=== PATIENT | male | born 1985 | race African-American/Black ===

== ENCOUNTER 2020-01-20 21:20 | Emergency (ER) | payer MEDICAID ==
[~2020-01-20] VITALS: Ht 190.5 cm; Wt 104.3 kg
[2020-01-20 22:24] LABS: BASOPHILS % (AUTO) 0.9 % (0.0-2.0); EOSINOPHILS % (AUTO) 1.1 % (0.0-7.0); LYMPHOCYTES % (AUTO) 25.7 % (20.5-51.5); MEAN CORPUSCULAR HEMOGLOBIN 29.9 uug (23.8-33.4); MEAN CORPUSCULAR HGB CONC 33 g/dL (32.5-36.3); MONOCYTES # (AUTO) 0.6 K/uL (2.0-10.0); MONOCYTES % (AUTO) 17.1 % (0.0-11.0); NEUTROPHILS # (AUTO) 2.1 K/uL (1.8-8.9); NEUTROPHILS % (AUTO) 55.2 % (38.5-71.5); PLATELET COUNT (AUTO) 273 K/uL (152-348); RED BLOOD CELL COUNT(AUTO) 4.67 MIL/uL (4.06-5.63); WHITE BLOOD COUNT (AUTO) 3.8 K/uL (3.6-10.2)
[2020-01-20 22:29] LABS: CREATININE 1.6 mg/dL (0.6-1.3); POTASSIUM 3.6 mmol/L (3.5-5.1)
[2020-01-20 22:35] LABS: BILIRUBIN,DIRECT 0.1 mg/dL (0.0-0.2); BILIRUBIN,TOTAL 0.3 mg/dL (0.2-1.0); TOTAL PROTEIN, SERUM 6.9 g/dL (6.4-8.2)
--- NOTE | 2020-01-20 22:40 | NUR ---
PT STATED HE COULD NOT PROVIDE URINE AT THIS TIME BECAUSE HE JUST WENT, SO I PROVIDE PT WITH 1 LITER OF WATER TO DRINK.
[2020-01-20 23:23] LABS: *BILIRUBIN,URIN NEGATIVE (NEGATIVE); *BLOOD, URINE NEGATIVE (NEGATIVE); *CLARITY,URINE CLEAR (CLEAR); *COLOR,URINE YELLOW (YELLOW); *KETONES,URINE NEGATIVE (NEGATIVE); *UROBILINOGEN,URINE 0.2 E.U./dl (NORMAL); LEUKOCYTE ESTERASE ,URINE NEGATIVE (NEGATIVE); NITRITE, URINE NEGATIVE (NEGATIVE); UGLUCOSE NEGATIVE (NEGATIVE)
--- NOTE | 2020-01-21 00:07 | NUR ---
URINE WAS SENT TO LAB EARLI[facility]. MSE COMPLETED. PT D/C'D HOME, ACI GIVEN. PT AMBULATED W/O DIFF/TOOK ALL BELONGINGS
[2020-01-21 00:08] VITALS: BP 120/89
[2020-01-21 03:50] LABS: BASOPHILS % (MANUAL) 1 % (0-2); EOSINOPHILS % (MANUAL) 3 % (0-8); LYMPHOCYTES % (MANUAL) 27 % (20-40); MONOCYTES % (MANUAL) 10 % (2-10); NEUTROPHILS % (MANUAL) 57 % (42-75)
== END 2020-01-21 00:09 | disposition home or self-care (01) ==
LOC: ER 21:24
DX: R10.9 Unspecified abdominal pain (principal); N28.9 Disorder of kidney and ureter, unspecified
CPT/HCPCS: 36415; 70030-TC; 83690; 85025; A4663

== ENCOUNTER 2020-01-28 22:00 | Emergency (ER) | payer MEDICAID ==
[~2020-01-28] VITALS: Ht 188 cm; Wt 104.3 kg
[2020-01-28] MEDS ORDERED: IV NORMAL SALINE 1000 ML BAG IV ONE (22:15)
--- NOTE | 2020-01-28 22:34 | NUR ---
MD EVALUATED PT, SALINE LOCK PLACED/EKG DONE/LABS DRAWN-SENT. PT STATED HE COULD NOT PROVIDE URINE AT THIS TIME, 1 L WATER GIVEN TO DRINK, URINAL AT THE BEDSIDE.
[2020-01-28 22:54] LABS: BASOPHILS % (AUTO) 0.7 % (0.0-2.0); EOSINOPHILS % (AUTO) 0.2 % (0.0-7.0); HEMOGLOBIN 13.4 g/dL (12.5-16.3); LYMPHOCYTES # (AUTO) 0.8 K/uL (20.0-40.0); LYMPHOCYTES % (AUTO) 15.4 % (20.5-51.5); MEAN CORPUSCULAR HGB CONC 34 g/dL (32.5-36.3); MEAN CORPUSCULAR VOLUME 89.4 fL (73.0-96.2); MONOCYTES # (AUTO) 0.5 K/uL (2.0-10.0); MONOCYTES % (AUTO) 8.5 % (0.0-11.0); NEUTROPHILS # (AUTO) 4.1 K/uL (1.8-8.9); NEUTROPHILS % (AUTO) 75.2 % (38.5-71.5); PLATELET COUNT (AUTO) 201 K/uL (152-348); RED BLOOD CELL COUNT(AUTO) 4.48 MIL/uL (4.06-5.63); WHITE BLOOD COUNT (AUTO) 5.4 K/uL (3.6-10.2)
[2020-01-28 23:01] LABS: BILIRUBIN,DIRECT 0.2 mg/dL (0.0-0.2); BILIRUBIN,TOTAL 0.5 mg/dL (0.2-1.0); CREATININE 1.5 mg/dL (0.6-1.3); POTASSIUM 3.8 mmol/L (3.5-5.1); TOTAL PROTEIN, SERUM 7.7 g/dL (6.4-8.2)
[2020-01-28 23:13] LABS: ETHANOL < 3 MG/DL (0-0)
[2020-01-29 00:11] LABS: *BILIRUBIN,URIN NEGATIVE (NEGATIVE); *BLOOD, URINE NEGATIVE (NEGATIVE); *CLARITY,URINE CLEAR (CLEAR); *KETONES,URINE NEGATIVE (NEGATIVE); *UROBILINOGEN,URINE 0.2 E.U./dl (NORMAL); LEUKOCYTE ESTERASE ,URINE NEGATIVE (NEGATIVE); NITRITE, URINE NEGATIVE (NEGATIVE); UGLUCOSE NEGATIVE (NEGATIVE)
[2020-01-29 00:23] LABS: *AMPHETAMINE, URINE NEGATIVE (NEGATIVE); *CANNABINOID, URINE NEGATIVE (NEGATIVE); *COCCAINE, URINE POSITIVE (NEGATIVE); *OPIATE, URINE NEGATIVE (NEGATIVE); *PHENCYCLIDINE SCREEN,URINE NEGATIVE (NEGATIVE)
[2020-01-29 00:32] LABS: *COLOR,URINE STRAW (YELLOW)
--- NOTE | 2020-01-29 00:50 | NUR ---
1L 0.9NS INFUSED, IV D/C'D INTACT, PT GIVEN ACI.
[2020-01-29 00:57] VITALS: BP 132/74
== END 2020-01-29 00:58 | disposition home or self-care (01) ==
LOC: ER 22:00
DX: R10.12 Left upper quadrant pain (principal); R00.2 Palpitations; N28.9 Disorder of kidney and ureter, unspecified; R00.0 Tachycardia, unspecified; F10.20 Alcohol dependence, uncomplicated; R74.8 Abnormal levels of other serum enzymes; F14.10 Cocaine abuse, uncomplicated; F15.10 Other stimulant abuse, uncomplicated
CPT/HCPCS: 36415; 71045; 83690; 85025; 93005; A4663; G0480; J7030